=== PATIENT | female | born 1980 | race Caucasian/White ===

== ENCOUNTER 2017-10-24 15:00 | Inpatient (IN) | payer OTHER ==
[2017-10-24 15:45] VITALS: BMI 28.0
[2017-10-24] MEDS ORDERED: OXYTOCIN 30 UNITS in 0.9% NS 30 UNIT/500 ML INFUS.BAG IVPB SCH (15:45)
[2017-10-24] MEDS ORDERED: OXYTOCIN 20 UNITS in 0.9% NS 20 UNIT/1,000 ML INFUS.BAG IV ONE (15:55)
[2017-10-24] MEDS ORDERED: BUTORPHANOL TARTRATE 1 MG/ML VIAL IVPUSH ONE (16:20)
[2017-10-24] MEDS ORDERED: PROMETHAZINE HCL 25 MG/1 ML VIAL IVPUSH ONE (16:20)
--- NOTE | 2017-10-24 16:30 | HP ---
Past Medical History - Primary Care Physician PCP:: Vito Menjivar - Admission Chief Complaint: 39 weeks, labor, grand multiparity, ama, labor History of Present Illness: 37 yo f g 9 p5 o3 5 edc by sono 10/26/16 39 weeks in labor , cx 5 cm 70 vx -3 mi, fhr cat 1 , irregular contraction History Source: Patient Limitations to Obtaining History: Language Barrier - Past Medical History ...: 9 ...Para: 5 ...Term: 5 ...Spon : 2 ...Induced : 1 ...EDC by Sono: 10/26/17 Heme/Onc: Yes: Anemia Infectious Disease: Yes: STD's (h/o chlamydia treated in 2010.) - Past Surgical History Past Surgical History: Yes: None Hx Myomectomy: No Hx Transabdominal Cerclage: No - Smoking History Smoking history: Never smoked Have you smoked in the past 12 months: No Aproximately how many cigarettes per day: 0 - Alcohol/Substance Use Hx Alcohol Use: No - Social History History of Recent Travel: No Home Medications - Allergies Allergies/Adverse Reactions: Allergies Allergy/AdvReac Type Severity Reaction Status Date / Time No Known Allergies Allergy Verified 02/18/15 13:09 - Home Medications Home Medications: Ambulatory Orders Vit 108/Iron/Folic AC [ One Tablet] 1 each PO DAILY 02/18/15 Acetaminophen [Tylenol .Regular Strength -] 650 mg PO Q3H PRN #0 tablet Ferrous Sulfate [Feosol] 325 mg PO BID #60 ud 02/19/15 Ibuprofen [Motrin -] 200 mg PO Q4H PRN #0 tablet 02/19/15 Vitamins (Sjr) - 1 tab PO DAILY tablet 02/19/15 Tablet 1 tablet PO DAILY 10/24/17 Review of Systems - Review of Systems Constitutional: reports: No Symptoms Eyes: reports: No Symptoms HENT: reports: No Symptoms Neck: reports: No Symptoms Cardiovascular: reports: No Symptoms Respiratory: reports: No Symptoms Gastrointestinal: reports: No Symptoms Genitourinary: reports: No Symptoms Breasts: reports: No Symptoms Reported Musculoskeletal: reports: No Symptoms Integumentary: reports: No Symptoms Neurological: reports: No Symptoms Endocrine: reports: No Symptoms Physical Exam - Maternity Vital Signs: Vital Signs Temperature 98.2 F 10/24/17 16:00 Pulse Rate 78 10/24/17 16:00 Respiratory Rate 20 10/24/17 16:00 Blood Pressure 126/84 10/24/17 16:00 O2 Sat by Pulse Oximetry (%) Constitutional: Yes: Well Nourished, No Distress, Calm Eyes: Yes: WNL, Conjunctiva Clear, EOM Intact HENT: Yes: WNL, Atraumatic, Normocephalic Neck: Yes: WNL, Supple, Trachea Midline Cardiovascular: Yes: WNL, Regular Rate and Rhythm Breast(s): Yes: WNL - Abdominal Exam/OB Fundal Height: 40 Number of Fetuses: Single Presentation: Vertex Contractions: Yes Regularity: Irregular Intensity: Moderate Monitor Mode: External Heart Rate Location: [facility] Category: I Decelerations: None - Vaginal Exam/OB Vaginal Bleediing: Bloody Show Speculum Exam: No Dilatation (cm): 5 cm Effacement (%): 70 Amniotic Membrane Status: Bulging Presentation: Vertex/Position Station: -3 - Physical Exam Musculoskeletal: Yes: WNL Extremities: Yes: WNL Edema: Yes Edema: LLE: Trace, RLE: Trace Deep Tendon Reflex Grade: Normal +2 Psychiatric: Yes: WNL Hemorrhage Risk Assessment - Risk Factors Medium Risk Factors: Yes: Multiple gestation Risk Score: 1 Risk Level: Medium Risk Problem List - Problems (1) 39 weeks gestation of Code(s): Z3A.39 - 39 WEEKS GESTATION OF (2) Grand multipara Code(s): Z64.1 - PROBLEMS RELATED TO MULTIPARITY (3) Advanced maternal age (AMA) in Code(s): [id number] - (4) Labor established Code(s): [id number] - Assessment/Plan admit , FHM, irregular contraction, pitocin advised rba discussed , pain management, DVT prophylactic
[2017-10-24] MEDS ORDERED: DEXTROSE 5%-LACTATED RINGERS 1,000 ML IV SCH (16:45)
[2017-10-24 16:58] LABS: BASO % 0.3 % (0-2.0); EOS % 0.6 % (0-4.5); HEMATOCRIT 32.9 % (32.4-45.2); HEMOGLOBIN 10.7 GM/dL (10.7-15.3); LYMPH % 25.2 % (8-40); MCH 27.7 pg (25.7-33.7); MCHC 32.5 g/dl (32.0-36.0); MEAN PLT VOLUME 9.4 fl (7.5-11.1); MONO % 5.6 % (3.8-10.2); NEUT % 68.3 % (42.8-82.8); PLATELET COUNT 313 K/MM3 (134-434); RBC 3.87 M/mm3 (3.60-5.2); RDW 14.9 % (11.6-15.6); WHITE BLOOD COUNT 6.9 K/mm3 (4.0-10.0)
[2017-10-24 17:22] LABS: INR 0.87 (0.82-1.09); PROTHROMBIN TIME (PATIENT) 9.8 SEC (9.7-13.0)
[2017-10-24 17:23] LABS: ANION GAP 9 (8-16); BLOOD UREA NITROGEN 5 mg/dL (7-18); CALCIUM 8.3 mg/dL (8.5-10.1); CHLORIDE 108 mmol/L (98-107); CO2 24 mmol/L (21-32); CREATININE 0.5 mg/dL (0.55-1.02); GLUCOSE,RANDOM 91 mg/dL (74-106); POTASSIUM 3.6 mmol/L (3.5-5.1); SODIUM 141 mmol/L (136-145)
--- NOTE | 2017-10-24 22:19 | PN ---
Progress Note (short form) - Note Progress Note: cx 5 cm, 70 vx -3 mi, bulging , fhr cat 1, irregular contraction Problem List - Problems (1) 39 weeks gestation of Code(s): Z3A.39 - 39 WEEKS GESTATION OF (2) Grand multipara Code(s): Z64.1 - PROBLEMS RELATED TO MULTIPARITY (3) Advanced maternal age (AMA) in Code(s): SIT7146 - (4) Labor established Code(s): EBF0880 -
[2017-10-24] MEDS ORDERED: DEXTROSE 5%-LACTATED RINGERS 1,000 ML IV ONE (23:00)
--- NOTE | 2017-10-25 02:58 | PN ---
Progress Note (short form) - Note Progress Note: cx 6 cm 80 vx -2 arom, cler, fhr cat 1, contraction q 2 min Problem List - Problems (1) 39 weeks gestation of Code(s): Z3A.39 - 39 WEEKS GESTATION OF (2) Grand multipara Code(s): Z64.1 - PROBLEMS RELATED TO MULTIPARITY (3) Advanced maternal age (AMA) in Code(s): GBM2369 - (4) Labor established Code(s): [id number] -
[2017-10-25] MEDS ORDERED: PROMETHAZINE HCL 25 MG/1 ML VIAL ONE (03:11)
[2017-10-25] MEDS ORDERED: BUTORPHANOL TARTRATE 1 MG/ML VIAL ONE ×3 (03:11→03:15)
[2017-10-25] MEDS ORDERED: OXYTOCIN 20 UNITS in 0.9% NS 20 UNIT/1,000 ML INFUS.BAG IV ONE ×2 (04:18→07:46)
[2017-10-25] MEDS: OXYTOCIN 20 UNITS in 0.9% NS 20 UNIT/1,000 ML INFUS.BAG IV SCH ×2 (04:50→07:49)
[2017-10-25] MEDS ORDERED: WITCH HAZEL 50% (TUCKS) 40 PAD/JAR PAD TP PRN (04:58)
[2017-10-25] MEDS ORDERED: oxyCODONE HCL 5 MG TABLET PO PRN (04:58)
[2017-10-25] MEDS ORDERED: BISACODYL 10 MG SUPP.RECT RC PRN (04:58)
[2017-10-25] MEDS ORDERED: BENZOCAINE 28 GM HEMORRHOIDAL OINTMENT TP PRN (04:58)
[2017-10-25] MEDS ORDERED: BENZOCAINE 20% 57 GM BOTTLE TP PRN (04:58)
[2017-10-25] MEDS ORDERED: METHYLERGONOVINE MALEATE 0.2 MG/1 ML AMP IM PRN (04:58)
[2017-10-25] MEDS ORDERED: METHYLERGONOVINE MALEATE 0.2 MG/1 ML AMP IM ONE (04:59)
[2017-10-25] MEDS ORDERED: CARBOPROST TROMETHAMINE 250 MCG/ML AMPUL IM ONE (05:00)
[2017-10-25 06:07] LABS: ARTERIAL BLD GAS O2 SATURATION 75.2 % (90-98.9); ARTERIAL BLOOD GAS BASE EXCESS -3.3 meq/l (-2-2); ARTERIAL BLOOD GAS PCO2 52.4 mmHg (35-45); ARTERIAL BLOOD GAS PO2 37.3 mmHg (80-100); ARTERIAL BLOOD GAS pH 7.28 (7.35-7.45)
[2017-10-25 06:14] LABS: VENOUS PC02 51.5 mmHg (38-52); VENOUS PH 7.28 (7.32-7.42)
[2017-10-25 06:15] LABS: VENOUS PO2 41.7 mmHg (28-48)
[2017-10-25] MEDS: ACETAMINOPHEN 325 MG TABLET (FP) PO PRN ×3 (08:21→20:46)
[2017-10-25] MEDS: IBUPROFEN 600 MG TABLET (FP) PO PRN ×3 (08:21→20:47)
[2017-10-25] MEDS: PRENATAL VITAMINS W/ FOLIC ACID TABLET (FP) PO SCH (09:26)
[2017-10-25] MEDS: FERROUS SO4 325 MG TABLET (FP) PO SCH ×2 (09:26→21:59)
[2017-10-26] MEDS: ACETAMINOPHEN 325 MG TABLET (FP) PO PRN ×3 (04:17→21:59)
[2017-10-26] MEDS: IBUPROFEN 600 MG TABLET (FP) PO PRN ×3 (04:17→21:59)
--- NOTE | 2017-10-26 07:26 | PN ---
Post Progress Note - Subjective Subjective: no complains Post Day: 1 Type of Delivery: Vital Signs: Vital Signs Temperature 98.5 F 10/26/17 00:56 Pulse Rate 72 10/26/17 00:56 Respiratory Rate 18 10/26/17 00:56 Blood Pressure 104/54 10/26/17 00:56 O2 Sat by Pulse Oximetry (%) 95 10/25/17 06:00 Breast Exam: Yes: Soft, Other (BF ). No: Engorged Uterus: Yes: Fundus Firm, Fundus below umbilicus, Non-tender Lochia: Yes: Rubra Lochia, amount: Moderate Extremities: Yes: Calves non-tender Perineum: Yes: Intact Activity: Ambulating - Labs Labs: CBC WBC 6.9 K/mm3 (4.0-10.0) 10/24/17 16:00 RBC 3.87 M/mm3 (3.60-5.2) 10/24/17 16:00 Hgb 10.7 GM/dL (10.7-15.3) 10/24/17 16:00 Hct 32.9 % (32.4-45.2) D 10/24/17 16:00 MCV 85.0 fl (80-96) 10/24/17 16:00 MCH 27.7 pg (25.7-33.7) 10/24/17 16:00 MCHC 32.5 g/dl (32.0-36.0) 10/24/17 16:00 RDW 14.9 % (11.6-15.6) 10/24/17 16:00 Plt Count 313 K/MM3 (134-434) D 10/24/17 16:00 MPV 9.4 fl (7.5-11.1) 10/24/17 16:00 Absolute Neuts (auto) 4.7 # 10/24/17 16:00 Neutrophils % 68.3 % (42.8-82.8) 10/24/17 16:00 Lymphocytes % 25.2 % (8-40) 10/24/17 16:00 Monocytes % 5.6 % (3.8-10.2) 10/24/17 16:00 Eosinophils % 0.6 % (0-4.5) 10/24/17 16:00 Basophils % 0.3 % (0-2.0) 10/24/17 16:00 Nucleated RBC % 0 % (0-0) 10/24/17 16:00 Problem List - Problems (1) Encounter for visit Code(s): Z39.2 - ENCOUNTER FOR ROUTINE FOLLOW-UP (2) Normal vaginal delivery Code(s): O80 - ENCOUNTER FOR FULL-TERM UNCOMPLICATED DELIVERY Assessment/Plan stable plan cbc today. discharge tomorrow
[2017-10-26 07:53] LABS: BASO % 0.4 % (0-2.0); EOS % 0.5 % (0-4.5); HEMATOCRIT 25.3 % (32.4-45.2); HEMOGLOBIN 8.5 GM/dL (10.7-15.3); LYMPH % 19.6 % (8-40); MCH 28.9 pg (25.7-33.7); MCHC 33.6 g/dl (32.0-36.0); MEAN CELL VOLUME 85.9 fl (80-96); MEAN PLT VOLUME 8.9 fl (7.5-11.1); MONO % 3.9 % (3.8-10.2); NEUT % 75.6 % (42.8-82.8); PLATELET COUNT 225 K/MM3 (134-434); RBC 2.95 M/mm3 (3.60-5.2); RDW 15.4 % (11.6-15.6)
[2017-10-26] MEDS: FERROUS SO4 325 MG TABLET (FP) PO SCH ×2 (09:29→21:59)
[2017-10-26] MEDS: PRENATAL VITAMINS W/ FOLIC ACID TABLET (FP) PO SCH (09:29)
[2017-10-26] MEDS ORDERED: SENNOSIDES/DOCUSATE COMBO (SENNA PLUS) TABLET (UD) PO PRN (22:00)
[2017-10-27] MEDS: ACETAMINOPHEN 325 MG TABLET (FP) PO PRN (06:02)
[2017-10-27] MEDS: IBUPROFEN 600 MG TABLET (FP) PO PRN (06:02)
[2017-10-27 07:53] VITALS: BP 110/53; PULSE 61; TEMP 98.3
[2017-10-27] MEDS: FERROUS SO4 325 MG TABLET (FP) PO SCH (09:01)
[2017-10-27] MEDS: PRENATAL VITAMINS W/ FOLIC ACID TABLET (FP) PO SCH (09:01)
--- NOTE | 2017-10-27 11:45 | DS ---
Physical Exam-[facility] Vital Signs: Vital Signs Temperature 98.3 F 10/27/17 07:51 Pulse Rate 61 10/27/17 07:51 Respiratory Rate 20 10/27/17 07:51 Blood Pressure 110/53 10/27/17 07:51 O2 Sat by Pulse Oximetry (%) 95 10/25/17 06:00 Constitutional: Yes: Well Nourished Eyes: Yes: Conjunctiva Clear HENT: Yes: Atraumatic Neck: Yes: Supple Cardiovascular: Yes: Regular Rate and Rhythm Respiratory: Yes: Regular Gastrointestinal: Yes: Normal Bowel Sounds External Genitalia: Yes: Normal Vaginal Exam: Yes: Normal Cervix: Yes: Normal Uterus: Yes: Firm ....Post : Yes: Uterus firm, Moderate lochia serosa Breast(s): Yes: WNL Musculoskeletal: Yes: WNL Extremities: Yes: WNL Neurological: Yes: Alert, Oriented ...Motor Strength: WNL Psychiatric: Yes: Alert, Oriented Labs: CBC, BMP 10/26/17 07:00 10/24/17 16:00 Delivery - Delivery Type of Anesthesia: None Episiotomy/Laceration: None EBL (cc): 500 Delivery, Single - Stages of Labor Date 1st Stage Initiatied: 10/24/17 Time 1st Stage Initiated: 21:00 Date 2nd Stage Initiated: 10/25/17 Time 2nd Stage Initiated: 04:15 Date of Delivery: 10/25/17 Time of Delivery: 04:41 Time Placenta Delivered: 04:45 - Condition of Book Packer/Certified Ophthalmic Technician Present: No Gender: Female Weight: 8 lb 5 oz Position: OA Total Hours ROM (Hrs/Mins): 1hr.55mins - 1 Minute Total Score: 9 5 Minutes Total Score: 9 - [place] Feeding Plan Initial Plan: Elected not to breastfeed exclusively throughout hospitalization Discharge Summary Reason For Visit: LABOR Current Active Problems 39 weeks gestation of (Acute) Advanced maternal age (AMA) in (Acute) Encounter for visit (Acute) Grand multipara (Acute) Labor established (Acute) Normal vaginal delivery (Acute) Procedures: Principal: Normal spontaneous vaginal delivery Hospital Course: Routine care Condition: Good - Instructions Diet, Activity, Other Instructions: Return to clinic in 4-6 weeks. call [facility], [place] for appointment. [phone] Disposition: HOME - Home Medications Comprehensive Discharge Medication List: Ambulatory Orders Vit 108/Iron/Folic AC [ One Tablet] 1 each PO DAILY 02/18/15 Acetaminophen [Tylenol .Regular Strength -] 650 mg PO Q3H PRN #0 tablet Ferrous Sulfate [Feosol] 325 mg PO BID #60 ud 02/19/15 Ibuprofen [Motrin -] 200 mg PO Q4H PRN #0 tablet 02/19/15 Vitamins (Sjr) - 1 tab PO DAILY tablet 02/19/15 Tablet 1 tablet PO DAILY 10/24/17
== END 2017-10-27 12:30 | disposition home or self-care (01) | DRG 560 ==
LOC: JLDR 15:00 → J3W 10-25 08:11
PROVIDERS: ADMIT Obstetrics & Gynecology; ATTEND Obstetrics & Gynecology
PROC: 10E0XZZ Delivery of Products of Conception, External Approach (ICD-10-PCS; principal; 2017-10-25)
DX: O80 Encounter for full-term uncomplicated delivery (principal); Z3A.39 39 weeks gestation of pregnancy; Z37.0 Single live birth
CPT/HCPCS: 36415; 36600; 59409; 80048; 82803; 85025; 85610; 85730; 86593; 86850; 86900; 86901